=== PATIENT | female | born 1980 | race Caucasian/White ===

== ENCOUNTER 2017-10-17 19:26 | Emergency (ER) | payer BC ==
[~2017-10-17] VITALS: Ht 162.6 cm; Wt 112.4 kg
[2017-10-17] MEDS ORDERED: VALIUM5 MG PO (21:54)
[2017-10-17] MEDS ORDERED: LIDODERM 5% P1 PATCH TD (21:54)
[2017-10-17] MEDS ORDERED: NAPROXEN500 MG PO (21:54)
[2017-10-17 22:13] VITALS: BP 141/91
== END 2017-10-17 22:13 | disposition home or self-care (01) ==
LOC: EME 19:26
DX: S39.012A Strain of muscle, fascia and tendon of lower back, initial encounter (principal); X50.1XXA Overexertion from prolonged static or awkward postures, initial encounter
CPT/HCPCS: 99281; 99284; J1885